=== PATIENT | female | born 1995 | race Caucasian/White ===

== ENCOUNTER → 2023-01-17 08:29 | Outpatient (BNVA) | payer MEDICAID, SELFPAY | PROVIDERS: PCP Internal Medicine; Visit Provider Nurse Practitioner Family | DX: R56.9 Unspecified convulsions (principal); R62.50 Unspecified lack of expected normal physiological development in childhood | CPT/HCPCS: 99212 ==

== ENCOUNTER 2023-07-21 09:08 | Outpatient (AMB) | payer MEDICAID, SELFPAY ==
--- NOTE | 2023-07-21 09:11 | A.OFFVIS_ITS ---
Intake Vital Signs 07/21/23 09:12 Height 5 ft 4 in Weight 164 lb BMI 28.1 BP 118/78 Blood Pressure Location Rt brachial Position Sitting Pulse 67 Pulse Source Pulse Oximeter Pulse Oximetry (%) 97 Oxygen Delivery Method Room Air Intake Visit Reasons: 6m follow up-LVM Intake Note: Patient presents for 6 month follow up.Patient states she's doing fine, no issues everything's been great. Allergies No Known Allergies Allergy (Verified 07/21/23 09:13) Medication List - Last Reconciled 07/21/23 by MYRON Reyna carbamazepine ER 100 mg PO BID 90 days carbamazepine ER 200 mg PO BID 90 days fluoxetine (Prozac) 40 mg PO DAILY HPI HPI Comments History of Present Illness Details 28-yr-old female presents for f/u visit, accompanied by her mother. Pt denies any significant interval medical changes. Pt is overall doing well. Denies any interval seizures. Sometimes she dozes off on her school bus, which school has thought was ? seizure activity, but mom thinks she just is prone to dozing off in cars. Compliant w/ Tegretol. Mom will have pt do labs at her upcoming physical. Mood is stable. She is going to her dayprogram- which she usually enjoys. Rarely may not want to get on/off her bus, [facility] Medical History (Updated 01/17/23 @ 09:13 by MYRON Reyna) Depression Social History Alcohol intake: never Patient Tobacco Use Status: Never used Tobacco Review of Systems Const All systems reviewed & are unremarkable except as noted in HPI and below Physical Exam Vital Signs: Last Vital Signs Pulse 67 07/21/23 09:12 BP 118/78 07/21/23 09:12 Pulse Ox 97 07/21/23 09:12 Oxygen Delivery Method Room Air 07/21/23 09:12 BMI result Body Mass Index 28.1 Const General: cooperative and no acute distress Resp Effort & Inspection: normal respiratory effort and able to speak in complete sentences Neuro General: gait normal Motor exam (neuro): 5/5 motor strength present throughout Psych Appearance: grossly normal Affect: normal affect Attitude: cooperative Assessment & Plan Assessment & Plan (1) Seizure: Code(s): R56.9 - Unspecified convulsions (2) Developmental delay, severe: Code(s): R62.50 - Unspecified lack of expected normal physiological development in childhood Plan Continue Carbamazepine 300mg bid. Continue Fluoxetine. Check CBC, CMP, Carbamazepine level- lab slips previously given to mom. f/u in 6 months or sooner prn Coding Level of Care Code Est Pt Level 4 (82115) Diagnoses Seizure R56.9 Developmental delay, severe R62.50
[2023-07-21 09:12] VITALS: BP 118/78; PULSE 67; O2SAT 97; BMI 28.1
== END 2023-07-21 10:01 | disposition home or self-care (01) ==
PROVIDERS: Visit Provider Nurse Practitioner Family
DX: R56.9 Unspecified convulsions (principal); R62.50 Unspecified lack of expected normal physiological development in childhood
CPT/HCPCS: 99214

== ENCOUNTER → 2023-07-21 09:08 | Outpatient (BNVA) | payer MEDICAID, SELFPAY | PROVIDERS: Visit Provider Nurse Practitioner Family | DX: R56.9 Unspecified convulsions (principal); R62.50 Unspecified lack of expected normal physiological development in childhood | CPT/HCPCS: 99212 ==

== ENCOUNTER 2025-03-18 08:54 | Outpatient (AMB) | payer MEDICAID, SELFPAY ==
--- NOTE | 2025-03-18 08:55 | A.OFFVIS_ITS ---
Vital Signs 03/18/25 09:04 Weight 162 lb BP 90/72 Pulse 95 Pulse Source Pulse Oximeter Pulse Oximetry (%) 98 Oxygen Delivery Method Room Air Intake Visit Reasons: f/u appt per Michell Hebert Note: Patient presents follow up for headaches. [employer] Service Advisor Required: No Accompanied by: Self / Same As Patient Allergies No Known Allergies Allergy (Verified 03/18/25 09:05) Medication List - Last Reconciled 03/18/25 by MYRON Reyna carbamazepine ER 100 mg PO BID 90 days NS carbamazepine ER 200 mg PO BID 90 days NS fluoxetine (Prozac) 40 mg PO DAILY HPI Comments Details: 29-yr-old female presents for f/u visit procedure in setting of developmental delay, accompanied by her mother. Pt denies any significant interval medical changes. Pt is overall doing well. Denies any interval seizures. Compliant w/ Tegretol. Mood is better since starting Prozac. Mom states it took patient awhile to readjust to returning to her day program at [facility] after the COVID pandemic, however she is now attending her program without any issues. Patient states she enjoys going to [facility], where she spends time with friends and engages in regular activities. [facility] Medical History (Updated 03/18/25 @ 09:57 by MYRON Reyna) Depression Social History Alcohol intake: never Patient Tobacco Use Status: Never used Tobacco Physical Exam Vital Signs: Last Vital Signs Pulse 95 03/18/25 09:04 BP 90/72 03/18/25 09:04 Pulse Ox 98 03/18/25 09:04 Oxygen Delivery Method Room Air 03/18/25 09:04 Const General: cooperative and no acute distress Resp Effort & Inspection: normal respiratory effort and able to speak in complete sentences Neuro Other: Alert, responds appropriately to simple sentences. Follows simple commands. Pleasant affect Stands up easily. Steady gait with mild forward trunk lean and bilateral lower extremity external rotation General: moves all extremities Psych Appearance: grossly normal Attitude: cooperative Assessment & Plan Assessment & Plan (1) Seizure: Code(s): R56.9 - Unspecified convulsions Category: Medical (2) Developmental delay, severe: Code(s): R62.50 - Unspecified lack of expected normal physiological development in childhood Category: Medical (3) Depression: Code(s): F32.A - Depression, unspecified Category: Medical Plan Continue Carbamazepine 300mg bid. Continue Fluoxetine, as patient has had positive effect from use. Check CBC, CMP, Carbamazepine level with next scheduled PCP labs- lab slips given to mom f/u in 6 months or sooner prn Orders: Orders Complete Blood Count Auto Diff Today R56.9 - Unspecified convulsions Comprehensive Met. Panel Today R56.9 - Unspecified convulsions Carbamazepine Tegretol Today G40.909 - Epilepsy, unspecified, not intractable, without status epilepticus, R56.9 - Unspecified convulsions Medications: Refilled carbamazepine ER take w/ 200mg tab to equal 300mg/dose 100 mg PO BID 90 days 180 tabs 3RF NS carbamazepine ER (take w/ Tegretol ER 100mg = 300mg per dose) 200 mg PO BID 90 days 180 tabs 3RF NS Coding Level of Care Code Est Pt Level 4 (88991) Diagnoses Seizure R56.9 Developmental delay, severe R62.50 Depression F32.A
[2025-03-18 09:04] VITALS: BP 90/72; PULSE 95; O2SAT 98
--- OUTSIDE RECORDS SUMMARY | 2025-03-18 09:15 | XMS_ITS | Encounter Summary ---
Author Organization [facility] Address [address] [place] [phone] Phone Care Team Providers Care Leather Softener Name Role Phone Eileen Negron MD Primary Care Provider Encounter Details Date Type Department Care Team (Late st Contact Info) Description 03/15/2018 Conversion Encounter [facility] [address] [place] [address] Eileen Negron MD [address] [place] [address] Social History Tobacco Use Types Packs/Day Years Used Date Smoking Tobacco: Never Assessed Comments Unknown Sex and Gender Information Value Date Recorded Sex Assigned at Not on file Legal Sex Female 6:27 PM EDT Gender Identity Not on file Sexual Orientation Not on file documented as of this encounter Plan of Treatment Not on file documented as of this encounter Visit Diagnoses Not on filedocumented in this encounter Care Teams Leather Softener Relationship Specialty Start Date End Date Eileen Negron MD [address] [place] [address] PCP - General 03/04/18 12/05/24 documented as of this encounter
== END 2025-03-18 09:33 | disposition home or self-care (01) ==
LOC: HO.HSMS 08:54
PROVIDERS: PCP Internal Medicine; Visit Provider Nurse Practitioner Family
DX: R56.9 Unspecified convulsions (principal); R62.50 Unspecified lack of expected normal physiological development in childhood; F32.A Depression, unspecified
CPT/HCPCS: 99214

== ENCOUNTER → 2025-03-18 08:54 | Outpatient (BNVA) | payer MEDICAID, SELFPAY | PROVIDERS: PCP Internal Medicine; Visit Provider Nurse Practitioner Family | DX: R62.50 Unspecified lack of expected normal physiological development in childhood (principal); R56.9 Unspecified convulsions; F32.A Depression, unspecified | CPT/HCPCS: 99212 ==